=== PATIENT | male | born 1995 | race Two or more races ===

== ENCOUNTER 2024-03-08 13:05 | Emergency (ER) | payer OTHER ==
[~2024-03-08] VITALS: Ht 180.3 cm; Wt 72.6 kg
[2024-03-08] MEDS ORDERED: HYDROCODONE/APAP 5-325MG TABLET ONE (14:37)
[2024-03-08] MEDS: HYDROCODONE/APAP 5-325MG TABLET PO ONE (14:38)
[2024-03-08] MEDS ORDERED: HYDR-3972 PO (15:24)
[2024-03-08 15:35] VITALS: BP 117/64; TEMP 97.3; O2SAT 98
== END 2024-03-08 15:38 | disposition home or self-care (01) ==
LOC: ER 13:21
DX: S63.280A Dislocation of proximal interphalangeal joint of right index finger, initial encounter (principal); Z79.891 Long term (current) use of opiate analgesic; Z60.2 Problems related to living alone; Z88.2 Allergy status to sulfonamides; X58.XXXA Exposure to other specified factors, initial encounter; Y93.61 Activity, american tackle football; Y92.89 Other specified places as the place of occurrence of the external cause; Y99.8 Other external cause status
CPT/HCPCS: 73140; A4606; A4663

== ENCOUNTER 2024-06-28 12:29 | Emergency (ER) | payer OTHER ==
[~2024-06-28] VITALS: Ht 180.3 cm; Wt 72.6 kg
[~2024-06-28 12:29] MED LIST: HYDR-3972 PO
[2024-06-28] MEDS ORDERED: ACET1TAB23 PO (13:30)
[2024-06-28 14:14] VITALS: BP 125/70; O2SAT 100
== END 2024-06-28 14:17 | disposition home or self-care (01) ==
LOC: ER 12:31
DX: S93.491A Sprain of other ligament of right ankle, initial encounter (principal); Z79.899 Other long term (current) drug therapy; Z60.2 Problems related to living alone; Z88.2 Allergy status to sulfonamides; X50.1XXA Overexertion from prolonged static or awkward postures, initial encounter; Y93.61 Activity, american tackle football; Y92.89 Other specified places as the place of occurrence of the external cause; Y99.8 Other external cause status
CPT/HCPCS: 73610; A4606; A4663